=== PATIENT | female | born 1980 | race Caucasian/White ===

== ENCOUNTER 2025-08-24 09:46 | Day surgery (SDC) | payer MEDICARE, SELFPAY ==
--- NOTE | 2025-08-20 13:01 | EXP.HP ---
History of Present Illness *Admission Date: 08/24/25 *History of present illness: Mrs. Vargas is a 45-year-old female who is here for diagnostic colonoscopy. The patient does have transverse myelitis and severe defecatory and urinary difficulties. She did complete pelvic floor PT ([facility] physical therapy [place]) which helps some. She is on Perdiem now but does not take it regularly. She also takes MiraLAX (without fiber). She still has some incomplete defecation but overall has improved some. 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 The patient does take buspirone in the evening but did have some dizziness with buspirone in the mornings. This is persistent and nightly. She does splint especially when driving towards the left side which helps some. She still gets some gas and bloating. The patient's last colonoscopy was 5 years ago. [facility] Disclaimer: The information contained in this section may have been updated after the patient was seen, as this information can be updated by other users. Medical History Spinal cord injury Heart murmur Neurogenic bladder Chronic idiopathic constipation Paraplegia Acute (transverse) myelitis in conditions classified elsewhere Anxiety and depression Surgical History Hx of cholecystectomy H/O bilateral breast reduction surgery H/O hemorrhoidectomy History of endometrial ablation History of tubal ligation History of tonsillectomy Family History Other No significant family history Social History (Updated 08/24/25 @ 10:43 by Celine Doan CRNA) Smoking Status: Never smoker alcohol intake: current alcohol intake frequency: holidays/special occasions only substance use type: unknown current occupational status: disabled Travel in the last 8 weeks?: None Have you lived/traveled outside [place] in past 30 days?: No Contact w/someone who lives/traveled outside [place] past 30 days?: No Exposure to someone with infectious disease in past 14 days?: No Do you have a fever (greater than 100.4 F or 38 C)?: No Have you tested positive for COVID-19?: No Exposed to someone with COVID-19 in past 14 days?: No Do you have a sore throat?: No Do you have a cough?: No Do you have any weakness?: No Do you have any diarrhea?: No Are you experiencing any unusual bleeding?: No Do you have any muscle aches/pain?: No Do you have any abdominal pain?: No Are you experiencing loss of taste or smell?: No Review of Systems Review of Systems Review of systems (narrative): Negative *Cardiovascular Comments: Negative *Gastrointestinal Comments: Negative *Genitourinary Comments: Negative *Musculoskeletal Comments: Negative *Neurologic Comments: Negative Meds Home Medications and Allergies Home Medications ?Medication ?Instructions ?Recorded ?Confirmed ?Type cholecalciferol (vitamin D3) 50 50 mcg PO DAILY 09/30/24 08/24/25 History mcg (2,000 unit) capsule mecobalamin (vitamin B12) 1,000 1,000 mcg PO DAILY 09/30/24 08/24/25 History mcg chewable tablet methenamine hippurate 1 gram tablet 1 g PO BID 09/30/24 08/24/25 History multivitamin 1 tab PO DAILY 09/30/24 08/24/25 History pregabalin 100 mg capsule 100 mg PO TID 09/30/24 08/24/25 History bisacodyl 10 mg rectal suppository 10 mg OH ONCE PRN Constipation 12/30/24 08/24/25 History polyethylene glycol 3350 17 17 g PO DAILY 12/30/24 08/21/25 History gram/dose oral powder (Miralax) semaglutide 0.25 mg or 0.5 mg (2 0.25 mg SQ WEEKLY 12/30/24 08/24/25 History mg/1.5 mL) subcutaneous pen injector buspirone 10 mg tablet 10 mg PO ONCE 06/23/25 08/24/25 History lorazepam 1 mg tablet 1 mg PO HS PRN abdominal pain #30 06/23/25 08/24/25 Rx tabs sodium,potassium,mag sulfates 17.5 See Rx Instructions PO .COMPLEX 08/10/25 Rx gram-3.13 gram-1.6 gram oral soln #354 mL (Suprep Bowel Prep Kit) calcium polycarbophil 625 mg tablet 1,250 mg PO DAILY Constipation 08/24/25 08/24/25 History New Prescriptions to Start Prescriptions: Allergies Allergy/AdvReac Type Severity Reaction Status Date / Time No Known Allergies Allergy Verified 08/24/25 10:14 Exam *Routine HEENT Exam Head: Present normocephalic Eye: Present EOMI and PERRL ENT: Present mucous membranes moist *Routine Neck Exam Neck: Present supple *Routine Respiratory Exam Respiratory: Present CTA bilaterally *Routine Cardiovascular Exam Cardiovascular: Present RRR *Routine Abdominal Exam Abdominal: Present soft and normoactive bowel sounds; Absent tenderness *Routine Rectal Exam Rectal:: deferred *Routine Genitalia Exam Genitalia:: deferred *Routine Extremities Exam Extremities: Absent cyanosis, clubbing or edema *Routine Skin Exam Skin: Present warm; Absent rash *Routine Neurological Exam Neurological: Present alert and oriented X3 Assessment and Plan *Assessment and plan (1) Right upper quadrant abdominal pain: Status: Acute Category: Medical Code(s): R10.11 - Right upper quadrant pain (2) Outlet dysfunction constipation: Status: Acute Category: Medical Code(s): K59.02 - Outlet dysfunction constipation (3) Fecal incontinence: Status: Acute Category: Medical Code(s): R15.9 - Full incontinence of feces (4) Hepatic flexure syndrome: Status: Acute Category: Medical Code(s): K59.89 - Other specified functional intestinal disorders Plan A/P: 1. Right upper quadrant abdominal pain/hepatic flexure syndrome with outlet dysfunction constipation and intermittent fecal incontinence is the preprocedural diagnosis. The patient will be anesthetized/sedated using MAC sedation. The patient has been seen and examined. Cardiac and lung assessment prior to the examination is stable. Proceed with planned diagnostic colonoscopy.
--- NOTE | 2025-08-20 13:15 | SUR.PREOP ---
left detailed message on pt's phone
[2025-08-21 09:15] VITALS: BMI 27.1
--- NOTE | 2025-08-24 07:06 | P.PCN_ITS ---
[facility] Procedure Note Date: 08/24/25 Time: 11:30 Procedure Note:: Colonoscopy Procedure Report: Colonoscopy with cold snare polypectomy Endoscopist: Michael Hernandez II, MD Referring physician: Tyra Walters DO Date of Procedure: August 24, 2025 Equipment: Olympus [id number] adult colonoscope Sedation: MAC sedation Indication: Mrs. Vargas is a 45-year-old female who is here for diagnostic colonoscopy. The patient does have transverse myelitis and severe defecatory and urinary difficulties. She did complete pelvic floor PT ([facility] physical therapy [facility]) which helps some. She is on Perdiem now but does not take it regularly. She also takes MiraLAX (without fiber). She still has some incomplete defecation but overall has improved some. 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 The patient does take buspirone in the evening but did have some dizziness with buspirone in the mornings. This is persistent and nightly. She does splint especially when driving towards the left side which helps some. She still gets some gas and bloating. The patient's last colonoscopy was 5 years ago. Procedure: Prior to the procedure, a history and physical exam was performed, and patient's medications and allergies were reviewed. The risks, benefits and alternatives of the sedation and procedure were discussed with the patient. All questions were answered and informed consent was obtained. The patient was brought to the procedure room. Patient identification and proposed procedure were verified by the physician and the nurse. The patient was placed in a left lateral decubitus position and the scope was passed under direct vision. Throughout the procedure, the patient's blood pressure, pulse, and oxygen saturations were monitored continuously. The colonoscopy was accomplished without difficulty. The patient tolerated the procedure well. Findings: On digital rectal examination there was normal rectal tone. There were no external hemorrhoids. The colonoscope was introduced through the anal canal to the rectum and advanced to the cecum. There was a [id number] ileocolonic anastomosis identified. The scope was advanced a short distance into the ileum which appeared grossly normal. The scope was then withdrawn into the colon. The remaining ascending, transverse, descending, sigmoid and rectum were grossly normal. There was a single 5 mm polyp in the rectum that was removed via cold snare polypectomy. There was also some angulation at the hepatic flexure. Upon retroflexion within the rectum there were grade 1-2 internal hemorrhoids. The preparation was excellent throughout with Borden Preparation Score of 9. The cecal time was 12 minutes. Impression: 1. Rectal polyp (5 mm) 2. Probable hepatic flexure syndrome 3. [id number] ileocolonic anastomosis Plan: I will follow-up the polyp histology and recommend repeat screening/surveillance colonoscopy again in 5 years. I do suspect that her right sided abdominal pain is hepatic flexure syndrome related to trapped gas and stool with spasm. I would consider addition of additional neuromodulation (SNRI) if pain persists. I would continue MiraLAX or even consider switching to Linzess. I will discuss with patient and family.
[2025-08-24 10:10] VITALS: BMI 27.1
[2025-08-24 10:21] VITALS: BP 104/75; PULSE 72; RESP 18; TEMP 36.1; O2SAT 97
[2025-08-24] MEDS: LACTATED RINGERS 1000ML 1,000 ML 50 ML IV (10:34)
--- NOTE | 2025-08-24 10:41 | EXP.ANES.CKL ---
[facility] Disclaimer: The information contained in this section may have been updated after the patient was seen, as this information can be updated by other users. Medical History Spinal cord injury Heart murmur Neurogenic bladder Chronic idiopathic constipation Paraplegia Acute (transverse) myelitis in conditions classified elsewhere Anxiety and depression Surgical History Hx of cholecystectomy H/O bilateral breast reduction surgery H/O hemorrhoidectomy History of endometrial ablation History of tubal ligation History of tonsillectomy Family History Other No significant family history Social History Smoking Status: Never smoker alcohol intake: current alcohol intake frequency: holidays/special occasions only substance use type: unknown current occupational status: disabled Travel in the last 8 weeks?: None [facility] Anesthesia Checklist Patient Identification Patient Identification: Arm Band and Verbal (Name & ) Structural Data Admitted From: Home Planned Operative Procedure/s: colonscopy Consent for Planned Operative Procedure(s) Verified: Yes Verified Documents: Surgical Consent and History and Physical NPO Status Verified Time NPO: 00:00 Additional verifications Anesthesia Reactions: No Previous Colonoscopy: Yes Airway Assessment Mallampati Score:: Class II Dentition: Good Dentition Neurological Assessment Level of Consciousness: Awake, Alert and Appropriate Hx Seizures: No Numbness or tingling in extremities: No Anesthesia Plan Anesthesia Risk discussed: Yes Anesthesia Plan: Verified ASA Class: II Anesthesia Type: MAC
[2025-08-24 10:44] LABS: Urine Pregnancy, HCG Qual. Negative (Negative)
[2025-08-24 11:33] VITALS: BP 106/61; PULSE 79; RESP 14; TEMP 36.1; O2SAT 96
[2025-08-24 11:43] VITALS: BP 114/74; PULSE 80; RESP 16; TEMP 36.1; O2SAT 98
[2025-08-24 11:53] VITALS: BP 110/57; PULSE 67; RESP 18; TEMP 36.1; O2SAT 100
[2025-08-24 12:03] VITALS: BP 118/74; PULSE 61; RESP 18; TEMP 36.1; O2SAT 100
== END 2025-08-24 12:34 | disposition home or self-care (01) ==
PROVIDERS: PCP Family Medicine; Visit Provider Internal Medicine Gastroenterology
PROC: 0DJD8ZZ Inspection of Lower Intestinal Tract, Via Natural or Artificial Opening Endoscopic (ICD-10-PCS; CPT 45378; principal; 2025-08-24 11:30)
DX: D12.8 Benign neoplasm of rectum (principal); K64.0 First degree hemorrhoids; K64.1 Second degree hemorrhoids; K56.609 Unspecified intestinal obstruction, unspecified as to partial versus complete obstruction; K63.89 Other specified diseases of intestine; K59.02 Outlet dysfunction constipation; K59.89 Other specified functional intestinal disorders; K59.04 Chronic idiopathic constipation; G37.3 Acute transverse myelitis in demyelinating disease of central nervous system
CPT/HCPCS: 45385; 81025; 88305; J2003; J2704; J7120